=== PATIENT | female | born 1970 | race Caucasian/White ===

== ENCOUNTER 2022-07-15 07:24 | Day surgery (SDC) | payer OTHER, BC ==
[2022-07-15] MEDS ORDERED: Lactated Ringers 1,000 ML IV SCH (08:00)
[2022-07-15] MEDS ORDERED: Propofol 200 MG/20 ML SDV ONE (08:40)
[2022-07-15] MEDS ORDERED: Midazolam 1 MG/ML 2 ML SDV ONE (08:40)
[2022-07-15] MEDS ORDERED: fentaNYL 50 MCG/ML SDV ONE (08:40)
== END 2022-07-15 10:40 | disposition home or self-care (01) ==
LOC: JP.SDS 07:24
PROVIDERS: ATTEND Student in an Organized Health Care Education/Training Program
DX: K63.5 Polyp of colon (principal); I10 Essential (primary) hypertension; E66.01 Morbid (severe) obesity due to excess calories; G47.33 Obstructive sleep apnea (adult) (pediatric); M79.7 Fibromyalgia; Z79.899 Other long term (current) drug therapy; Z68.42 Body mass index [BMI] 45.0-49.9, adult
CPT/HCPCS: 45378; J2250; J2704; J3010; J7120

== ENCOUNTER 2022-07-16 08:47 | Day surgery (SDC) | payer OTHER, BC ==
[~2022-07-16 08:47] MED LIST: Midazolam 1 MG/ML 2 ML SDV ONE; Propofol 200 MG/20 ML SDV ONE; fentaNYL 50 MCG/ML SDV ONE
[2022-07-16] MEDS ORDERED: Lactated Ringers 1,000 ML IV SCH (09:30)
[2022-07-16] MEDS ORDERED: Propofol 200 MG/20 ML SDV ONE (10:48)
== END 2022-07-16 12:30 | disposition home or self-care (01) ==
LOC: JP.SDS 08:47
PROVIDERS: ATTEND Family Medicine
DX: D12.2 Benign neoplasm of ascending colon (principal); K64.8 Other hemorrhoids; I10 Essential (primary) hypertension; G47.33 Obstructive sleep apnea (adult) (pediatric); E66.9 Obesity, unspecified
CPT/HCPCS: 45380; J2250; J2704; J3010; J7120

== ENCOUNTER 2024-07-02 08:58 | Day surgery (SDC) | payer BC, OTHER ==
[~2024-07-02 08:58] MED LIST changes: +fentaNYL 100 MCG/2 ML SDV ONE; -fentaNYL 50 MCG/ML SDV ONE
[2024-07-02] MEDS: Lactated Ringers 1,000 ML IV SCH (09:23)
== END 2024-07-02 12:15 | disposition home or self-care (01) ==
LOC: JP.SDS 08:58
PROVIDERS: ATTEND Surgery
DX: K20.90 Esophagitis, unspecified without bleeding (principal); R13.10 Dysphagia, unspecified; K22.89 Other specified disease of esophagus; I10 Essential (primary) hypertension
CPT/HCPCS: 00731; 43239; 88305; 88312; J2250; J2704; J3010; J7120